=== PATIENT | female | born 1940 | race Caucasian/White ===

== ENCOUNTER → 2024-12-09 | Outpatient (REF) | payer OTHER, MEDICAID | LOC: M SMT 12:42 | PROVIDERS: ATTEND Urology | DX: N30.00 Acute cystitis without hematuria (principal) ==

== ENCOUNTER 2025-01-08 06:13 | Day surgery (SDC) | payer OTHER, MEDICAID ==
[~2025-01-08] VITALS: Ht 152.4 cm; Wt 74.8 kg
[~2025-01-08 06:13] MED LIST: ALBU8.5H; AMLO1TAB24 PO; ASCO500C3 PO; FLUT1BLS6; OMEP-173 PO; PRAV40TA85 PO; SERT50TA29 PO; SPIR1CAP; VITA100093 PO; VITA100T91 PO
[2025-01-08] MEDS ORDERED: dexAMETHasone 4 MG/ML 1 ML VIAL As Ordered ONE (06:48)
[2025-01-08] MEDS ORDERED: LIDOCAINE 2% 100 MG/5 ML SDV (FOR ANES.) As Ordered ONE (06:48)
[2025-01-08] MEDS ORDERED: ONDANSETRON 4MG 2ML VIAL As Ordered ONE (06:48)
[2025-01-08] MEDS: FAMOTIDINE 20 MG/2 ML VIAL IVP ONE (07:00)
[2025-01-08] MEDS: ceFAZolin SOD 2 GM IV ONCE IV ONE (08:00)
[2025-01-08] MEDS ORDERED: ACETAMINOPHEN 1000MG/100ML IV BAG As Ordered ONE (08:02)
[2025-01-08] MEDS ORDERED: ALBUTEROL 6.7 GM INHALER **FOR ANES. CART/OMNICELL ONLY As Ordered ONE (08:09)
[2025-01-08] MEDS: ISOVUE-300 61% 100 ML VIAL As Ordered ONE (08:15)
[2025-01-08] MEDS ORDERED: HYDROMORPHONE HCL 0.5 MG/0.5 ML SYRINGE IV PRN (08:30)
[2025-01-08] MEDS ORDERED: MORPHINE 4 MG/ML 1 ML VIAL IV PRN (08:30)
[2025-01-08 09:47] VITALS: BP 139/77; TEMP 97; O2SAT 93
== END 2025-01-08 10:10 | disposition home or self-care (01) ==
LOC: M SDC 06:13
PROVIDERS: ATTEND Urology
DX: N13.6 Pyonephrosis (principal); I10 Essential (primary) hypertension; E78.00 Pure hypercholesterolemia, unspecified; K21.9 Gastro-esophageal reflux disease without esophagitis; J44.9 Chronic obstructive pulmonary disease, unspecified; Z79.899 Other long term (current) drug therapy; Z87.891 Personal history of nicotine dependence
CPT/HCPCS: 52356; 74420; 82365; C1769; C1894; C2617; J0131; J0688; J1100; J2405; J3010; Q9967